=== PATIENT | female | born 1985 | race African-American/Black ===

== ENCOUNTER 2016-09-16 20:55 | Outpatient (CLI) | payer MEDICAID ==
[2016-09-16 21:46] LABS: APPEARANCE,URINE CLEAR; BILIRUBIN,URINE NEGATIVE (NEGATIVE); GLUCOSE, URINE NEGATIVE (NEGATIVE); KETONES,URINE NEGATIVE (NEGATIVE); LEUKOCYTE ESTERASE,URINE NEGATIVE (NEGATIVE); NITRITE,URINE NEGATIVE (NEGATIVE); PROTEIN,URINE NEGATIVE (NEGATIVE); URINE SPECIFIC GRAVITY 1.004; UROBILINOGEN,URINE NEGATIVE mg/dL (<2.0)
[2016-09-16 22:09] LABS: URINE BARBITURATES SCREEN NEGATIVE; URINE METHADONE SCREEN NEGATIVE; URINE OPIATES LOW NEGATIVE; URINE PHENCYCLIDINE SCREEN NEGATIVE
--- NOTE | 2016-09-16 22:58 | RADIOLOGY REPORT (SQ) ---
EXAM DESCRIPTION: U/S OB LIMITED COMPLETED DATE/TIME: 09/16/2016 10:42 pm REASON FOR STUDY: Cervical Length/ contractions COMPARISON: None. TECHNIQUE: Limited transabdominal grayscale ultrasound for evaluation of specific requested obstetri nicki parameters. LIMITATIONS: None. FINDINGS: CERVICAL LENGTH: 3.5 cm Closed. FHR: 150 beats per minute. PRESENTATION: Cephalic. OTHER: No other significant findings. IMPRESSION: LIMITED OBSTETRICAL ULTRASOUND WITH MEASURED PARAMETERS DELINEATED ABOVE. Trimester of : Second trimester - 13 weeks 1 day to 27 weeks 6 days. TECHNICAL DOCUMENTATION: JOB ID: [id number] [employer]- All Rights Reserved
== END 2016-09-16 23:12 | disposition home or self-care (01) ==
LOC: LC 20:55
PROVIDERS: ATTEND Student in an Organized Health Care Education/Training Program
DX: O47.1 False labor at or after 37 completed weeks of gestation (principal)
CPT/HCPCS: 76815; 80307; 81001

== ENCOUNTER 2016-10-09 17:41 | Outpatient (CLI) | payer MEDICAID ==
[2016-10-09 18:38] LABS: AMORPHOUS SEDIMENT,URINE TRACE /HPF; APPEARANCE,URINE SLIGHTLY-CLOUDY; BILIRUBIN,URINE NEGATIVE (NEGATIVE); GLUCOSE, URINE NEGATIVE (NEGATIVE); KETONES,URINE NEGATIVE (NEGATIVE); LEUKOCYTE ESTERASE,URINE TRACE (NEGATIVE); NITRITE,URINE NEGATIVE (NEGATIVE); PROTEIN,URINE NEGATIVE (NEGATIVE); URINE SPECIFIC GRAVITY 1.006; UROBILINOGEN,URINE NEGATIVE mg/dL (<2.0)
[2016-10-09 18:56] LABS: URINE BARBITURATES SCREEN NEGATIVE; URINE METHADONE SCREEN NEGATIVE; URINE OPIATES LOW NEGATIVE; URINE PHENCYCLIDINE SCREEN NEGATIVE
--- NOTE | 2016-10-09 19:03 | RADIOLOGY REPORT (SQ) ---
EXAM DESCRIPTION: U/S OB LIMITED COMPLETED DATE/TIME: 10/09/2016 6:55 pm REASON FOR STUDY: cervical length COMPARISON: None. TECHNIQUE: Limited transvaginal and transabdominal grayscale ultrasound for evaluation of specific r equested obstetrical parameters. LIMITATIONS: None. FINDINGS: CERVICAL LENGTH: 4.3 cm Closed. CHAD: 13.3 cm. FHR: 141 beats per minute. PRESENTATION: Cephalic. OTHER: No other significant findings. IMPRESSION: LIMITED OBSTETRICAL ULTRASOUND WITH MEASURED PARAMETERS DELINEATED ABOVE. Trimester of : Third trimester - 28 weeks to delivery. TECHNICAL DOCUMENTATION: JOB ID: [id number] [employer]- All Rights Reserved
== END 2016-10-09 19:46 | disposition home or self-care (01) ==
LOC: LC 17:41
PROVIDERS: ATTEND Obstetrics & Gynecology
PROC: 4A1HXCZ Monitoring of Products of Conception, Cardiac Rate, External Approach (ICD-10-PCS; principal; 2016-10-09)
DX: O26.893 Other specified pregnancy related conditions, third trimester (principal); M54.9 Dorsalgia, unspecified; Z3A.29 29 weeks gestation of pregnancy
CPT/HCPCS: 76815; 80307; 81001

== ENCOUNTER 2016-11-13 08:34 | Outpatient (CLI) | payer MEDICAID ==
[2016-11-13 09:30] LABS: APPEARANCE,URINE CLEAR; BILIRUBIN,URINE NEGATIVE (NEGATIVE); GLUCOSE, URINE NEGATIVE (NEGATIVE); KETONES,URINE NEGATIVE (NEGATIVE); LEUKOCYTE ESTERASE,URINE NEGATIVE (NEGATIVE); NITRITE,URINE NEGATIVE (NEGATIVE); PROTEIN,URINE NEGATIVE (NEGATIVE); URINE SPECIFIC GRAVITY 1.003; UROBILINOGEN,URINE NEGATIVE mg/dL (<2.0)
[2016-11-13 09:46] LABS: URINE CREATININE 34.1 mg/dL (16-327); URINE PROTEIN 16.8 mg/dL (<12)
[2016-11-13 10:00] LABS: ABSOLUTE BASOPHILS # (AUTO) 0.1 10^3/uL (0.0-0.2); ABSOLUTE EOSINOPHILS # (AUTO) 0.1 10^3/uL (0.0-0.6); ABSOLUTE MONOCYTES (AUTO) 0.6 10^3/uL (0.1-1.4); ABSOLUTE NEUT (AUTO) 9.2 10^3/uL (1.7-8.2); BASOPHILS % (AUTO) 0.4 % (0-2); EOSINOPHILS % (AUTO) 0.7 % (0-6); HEMATOCRIT 29.7 % (36.0-47.0); HGB HCT DIFFERENCE 0.3; LYMPHOCYTES % (AUTO) 16.5 % (13-45); MEAN CORPUSCULAR HEMOGLOBIN 29.1 pg (27.0-33.4); MEAN CORPUSCULAR HGB CONC 33.7 g/dL (32.0-36.0); MEAN CORPUSCULAR VOLUME 86 fl (80-97); MONOCYTES % (AUTO) 4.9 % (3-13); RED BLOOD COUNT 3.44 10^6/uL (3.72-5.28); RED CELL DISTRIBUTION WIDTH 12.7 % (11.5-14.0); SEGMENTED NEUTROPHILS % (AUTO) 77.5 % (42-78); WHITE BLOOD COUNT 11.8 10^3/uL (4.0-10.5)
[2016-11-13 10:24] LABS: ALANINE AMINOTRANSFERASE 27 U/L (9-52); ALBUMIN 3.7 g/dL (3.5-5.0); ALKALINE PHOSPHATASE 136 U/L (38-126); ANION GAP 9 (5-19); ASPARTATE AMINO TRANSFERASE 20 U/L (14-36); BILIRUBIN,DIRECT 0.3 mg/dL (0.0-0.4); BILIRUBIN,TOTAL 0.4 mg/dL (0.2-1.3); BLOOD UREA NITROGEN 3 mg/dL (7-20); CALCIUM 9.7 mg/dL (8.4-10.2); CARBON DIOXIDE 23 mmol/L (22-30); CHLORIDE 106 mmol/L (98-107); CREATININE RESULT 0.53 mg/dL (0.52-1.25); GLUCOSE 96 mg/dL (75-110); LDH 423 U/L (313-618); POTASSIUM 3.7 mmol/L (3.6-5.0); SODIUM 138.2 mmol/L (137-145); TOTAL PROTEIN 6.6 g/dL (6.3-8.2)
== END 2016-11-13 10:48 | disposition home or self-care (01) ==
LOC: LC 08:34
PROVIDERS: ATTEND Obstetrics & Gynecology
PROC: 4A1HXCZ Monitoring of Products of Conception, Cardiac Rate, External Approach (ICD-10-PCS; principal; 2016-11-13)
DX: O13.3 Gestational [pregnancy-induced] hypertension without significant proteinuria, third trimester (principal); Z3A.35 35 weeks gestation of pregnancy
CPT/HCPCS: 36415; 59025; 80053; 81001; 82570; 83615; 84156; 84550; 85025

== ENCOUNTER 2016-11-23 15:15 | Outpatient (CLI) | payer MEDICAID ==
--- NOTE | 2016-11-23 16:21 | Non Stress Test Report ---
Non Stress Test Datetime Report Generated by CPN: 11/23/2016 16:20 DEMOGRAPHIC EGA NST: 36.3 EGA NST: 35.0 INDICATION Indication for Study: Ordered by Provider Indication for Study: Ordered by Provider Indication for Study (NST) Other: LC-Pre-E work up MONITORING Monitor Explained: Monitor Explained; Test Explained; Patient Verbalized Understanding Monitor Explained: Monitor Explained; Test Explained; Patient Verbalized Understanding Time on Monitor: 11/23/2016 15:29 Time on Monitor: 11/13/2016 08:57 Time off Monitor: 11/23/2016 16:15 NST Duration: 46 NST INTERVENTIONS NST Interventions: PO Hydration; Reposition Patient NST Interventions: PO Hydration; Meal Given; Reposition Patient Physician Notified NST: Dr. Gomes Physician Notified NST: Dr. Gomes BABY A: [id number] BABY A Movement : Present Movement : Present Contraction Frequency : 0 Contraction Frequency : Irr FHR Baseline : 135 Accelerations : 15X15 Accelerations : 15X15 Decelerations : None Decelerations : None Variability : Moderate 6-25bpm Variability : Moderate 6-25bpm NST Review: Meets Criteria for Reactive NST NST Review and Verified By : Tylor Palomares RN NST Results: Reactive NST Results: Reactive NST REPORT Report Trigger: Send Report
== END 2016-11-23 16:20 | disposition home or self-care (01) ==
LOC: LC 15:15
PROVIDERS: ATTEND Obstetrics & Gynecology
PROC: 4A1HXCZ Monitoring of Products of Conception, Cardiac Rate, External Approach (ICD-10-PCS; principal; 2016-11-23)
DX: Z34.93 Encounter for supervision of normal pregnancy, unspecified, third trimester (principal)
CPT/HCPCS: 59025

== ENCOUNTER 2016-12-03 06:42 | Inpatient (IN) | payer MEDICAID ==
[2016-11-30 13:31] LABS: APPEARANCE,URINE CLEAR; BILIRUBIN,URINE NEGATIVE (NEGATIVE); GLUCOSE, URINE NEGATIVE (NEGATIVE); KETONES,URINE 20 mg/dL (NEGATIVE); LEUKOCYTE ESTERASE,URINE NEGATIVE (NEGATIVE); NITRITE,URINE NEGATIVE (NEGATIVE); PROTEIN,URINE NEGATIVE (NEGATIVE); URINE SPECIFIC GRAVITY 1.014
[2016-11-30 13:43] LABS: ABSOLUTE LYMPHOCYTES (AUTO) 2.1 10^3/uL (0.5-4.7); ABSOLUTE MONOCYTES (AUTO) 0.6 10^3/uL (0.1-1.4); ABSOLUTE NEUT (AUTO) 7.4 10^3/uL (1.7-8.2); BASOPHILS % (AUTO) 0.4 % (0-2); EOSINOPHILS % (AUTO) 0.4 % (0-6); HEMATOCRIT 31.6 % (36.0-47.0); HEMOGLOBIN 10.6 g/dL (12.0-15.5); HGB HCT DIFFERENCE 0.2; LYMPHOCYTES % (AUTO) 20.4 % (13-45); MEAN CORPUSCULAR HEMOGLOBIN 29.1 pg (27.0-33.4); MEAN CORPUSCULAR HGB CONC 33.5 g/dL (32.0-36.0); MEAN CORPUSCULAR VOLUME 87 fl (80-97); MONOCYTES % (AUTO) 6.3 % (3-13); RED BLOOD COUNT 3.64 10^6/uL (3.72-5.28); RED CELL DISTRIBUTION WIDTH 12.7 % (11.5-14.0); SEGMENTED NEUTROPHILS % (AUTO) 72.5 % (42-78); WHITE BLOOD COUNT 10.2 10^3/uL (4.0-10.5)
[2016-11-30 13:49] LABS: URINE BARBITURATES SCREEN NEGATIVE; URINE METHADONE SCREEN NEGATIVE; URINE OPIATES LOW NEGATIVE; URINE PHENCYCLIDINE SCREEN NEGATIVE
[~2016-12-03 06:42] MED LIST: CEFAZOLIN 2 GM/D5W RTU 2 GM/50 ML RTUPB IV PRN; LIDOCAINE 0.5% INJ-PF (5 MG/ML) 50 ML SDV INJ PRN; RINGERS SOLUTION,LACTATED 1,000 ML IV PRN
[2016-12-03] MEDS ORDERED: OXYTOCIN/NORMAL SALINE 20 UNIT/1,000 ML RTUINJ ONE ×2 (09:58→12:13)
[2016-12-03] MEDS ORDERED: KETAMINE HCL INJ 500 MG/10 ML VIAL ONE (09:59)
[2016-12-03] MEDS ORDERED: PROPOFOL INJ 200 MG/20 ML VIAL IV ONE (09:59)
[2016-12-03] MEDS ORDERED: EPHEDRINE SULFATE INJ 50 MG/1 ML AMPULE ONE (09:59)
[2016-12-03] MEDS ORDERED: OXYTOCIN 10 UNIT/ML VIAL ONE (09:59)
[2016-12-03] MEDS ORDERED: FENTANYL CITRATE INJ/PF 100 MCG/2 ML AMPUL ONE ×2 (10:00→12:47)
[2016-12-03] MEDS ORDERED: MIDAZOLAM 2 MG/2 ML INJ ONE (10:00)
[2016-12-03] MEDS ORDERED: ONDANSETRON HCL INJ/PF 4 MG/2 ML SDV ONE (10:02)
[2016-12-03] MEDS ORDERED: ACETAMINOPHEN 100 ML IV ONE (10:05)
[2016-12-03] MEDS ORDERED: MORPHINE SULFATE 10 MG/ML INJ ONE (10:43)
[2016-12-03] MEDS ORDERED: FENTANYL CITRATE INJ/PF 100 MCG/2 ML AMPUL IV PRN ×3 (11:13)
[2016-12-03] MEDS ORDERED: MORPHINE SULFATE 10 MG/ML INJ IV PRN (11:13)
[2016-12-03] MEDS ORDERED: OXYTOCIN/NORMAL SALINE 20 UNIT/1,000 ML RTUINJ IV PRN (12:03)
[2016-12-03] MEDS ORDERED: ACETAMINOPHEN 325 MG TABLET PO PRN (12:03)
[2016-12-03] MEDS ORDERED: SIMETHICONE 80 MG TAB.CHEW PO PRN (12:03)
[2016-12-03] MEDS ORDERED: HYDROMORPHONE HCL INJ/PF 2 MG/ML AMPULE IV PRN (12:03)
[2016-12-03] MEDS ORDERED: ACETAMINOPHEN 100 ML IV PRN (12:03)
[2016-12-03] MEDS ORDERED: PROMETHAZINE HCL INJ 25 MG/1 ML VIAL IV PRN (12:03)
[2016-12-03] MEDS ORDERED: MEASLES,MUMPS&RUBELLA VACC/PF 0.5 ML VIAL SUBCUT PRN ×2 (12:03→14:30)
[2016-12-03] MEDS ORDERED: DIPH/PERTUSS(ACELL)/TETANUS VAC/PF 0.5 ML SYR (>=10YO) IM PRN ×2 (12:03→14:30)
[2016-12-03] MEDS ORDERED: OXYCODONE-ACETAMINOPHEN 5-325 MG TABLET PO PRN (12:03)
--- NOTE | 2016-12-03 12:18 | Brief Operative Note ---
BRIEF OPERATIVE REPORT DATE OF SURGERY: 12/03/16 TIME OF SURGERY: 11:00 PREOPERATIVE DIAGNOSIS: History of Section x 1, Desires RELTCS, Declines TOLAC, Undesired Fertility, , Anemia, GHTN, Left Ovarian Cyst POSTOPERATIVE DIAGNOSIS: ZHANNA - delivered SURGEON: MAKSIM CUELLAR FINDINGS: VFI delivered at 1100, Apgars 8/9, Weight 3165g, vertex presentation, FIlschie clips placed bilaterally, placenta with possible calcifications, left ovarian cyst (posible fibroma) partially avulsed from left ovary - removed and good hemostasis. IVF 2800ml, 600ml EBL, 125ml UOP COMPLICATIONS: None ESTIMATED BLOOD LOSS: 600ml TISSUE REMOVED OR ALTERED: placenta and cord - sent to pathology TECHNICAL PROCEDURE: RELTCS with BTL, Left Ovarian Cystectomy
--- NOTE | 2016-12-03 12:20 | Operative Report ---
Operative Report DATE OF SURGERY: 12/03/16 PREOPERATIVE DIAGNOSIS: History of Section x 1, Desires RELTCS, Declines TOLAC, Undesired Fertility, , Anemia, GHTN, Left Ovarian Cyst POSTOPERATIVE DIAGNOSIS: ZHANNA - delivered OPERATION: RELTCS with BTL, Left Ovarian Cystectomy SURGEON: MAKSIM CUELLAR ANESTHESIA: Spinal TISSUE REMOVED OR ALTERED: placenta and cord - sent to pathology COMPLICATIONS: None ESTIMATED BLOOD LOSS: 600ml INTRAOPERATIVE FINDINGS: VFI delivered at 1100, Apgars 8/9, Weight 3165g, vertex presentation, FIlschie clips placed bilaterally, placenta with possible calcifications, left ovarian cyst (posible fibroma) partially avulsed from left ovary - removed and good hemostasis. IVF 2800ml, 600ml EBL, 125ml UOP PROCEDURE: RELTCS and BTL with Left ovarian cystectomy
--- NOTE | 2016-12-03 12:23 | PDOC DELIVERY SUMMARY ---
Delivery Summary - Maternal Hx : V Hx Para: II Hx # Pregnancies: 2 Hx Total # of Abortions (Sponateous & Elective): 2 ALBERT: 12/22/16 Gestational Age: 37 wk +2 Risk Factors: Previous , Induced HTN Ruptured Membranes: AROM Time of Rupture: 10:58 Fluids: Clear - Delivery Labor: Not In Labor Presentation: Vertex Heart Rate Monitoring: Done Pre-Operatively Uterine Contraction Monitoring: External Support Person Present: Yes Location: OR : Scheduled, Repeat Placenta: Within Normal Limits Nuchal Cord: No Delivery of Placenta Date: 12/03/16 Delivery of Placenta Time: 11:03 - Medications Type of Anesthesia:: Spinal - Assess and Care Baby 1 Female Delivery of Infant Date: 12/03/16 Delivery of Time: 11:00 at 1 minute: 8 at 5 minutes: 9 Preprinted Number On Band: [id number] Infant Skin to Skin: No To Nursery At: 11:09 Mode of Transport: Bassinet Delivery Weight: 3165 kg Infant Delivery Length: 19 in - Delivery Personnel [employer] Specialist: DR LISSY Nagy RN: MAGUE RN: AJAY SIERRA MD: MAKSIM CUELLAR
[2016-12-03] MEDS ORDERED: KETOROLAC TROMETHAMINE INJ/PF 30 MG/1 ML SDV ONE (12:41)
[2016-12-03] MEDS ORDERED: FENTANYL CITRATE INJ/PF 100 MCG/2 ML AMPUL INJ ONE ×2 (13:24→13:50)
[2016-12-03] MEDS ORDERED: KETOROLAC TROMETHAMINE INJ/PF 30 MG/1 ML SDV IV SCH ×2 (14:00→18:00)
[2016-12-03] MEDS ORDERED: KETOROLAC TROMETHAMINE INJ/PF 30 MG/1 ML SDV IV ONE (16:45)
[2016-12-03] MEDS: DOCUSATE SODIUM 100 MG CAPSULE PO SCH (18:28)
[2016-12-03] MEDS: KETOROLAC TROMETHAMINE INJ/PF 30 MG/1 ML SDV IV SCH (21:16)
[2016-12-04] MEDS: OXYCODONE-ACETAMINOPHEN 5-325 MG TABLET PO PRN ×4 (00:23→23:39)
[2016-12-04] MEDS: KETOROLAC TROMETHAMINE INJ/PF 30 MG/1 ML SDV IV SCH (05:13)
[2016-12-04 06:21] LABS: HEMATOCRIT 24.9 % (36.0-47.0); HEMOGLOBIN 8.5 g/dL (12.0-15.5); HGB HCT DIFFERENCE 0.6; MEAN CORPUSCULAR HEMOGLOBIN 28.8 pg (27.0-33.4); MEAN CORPUSCULAR HGB CONC 34.3 g/dL (32.0-36.0); MEAN CORPUSCULAR VOLUME 84 fl (80-97); RED BLOOD COUNT 2.96 10^6/uL (3.72-5.28); RED CELL DISTRIBUTION WIDTH 12.6 % (11.5-14.0); WHITE BLOOD COUNT 12.5 10^3/uL (4.0-10.5)
--- NOTE | 2016-12-04 09:53 | PDOC PROGRESS REPORT ---
Subjective-OB Subjective: Post Delivery Day: 31 year old. Denies any needs at this time Doing well, no c/o, pain under control, breast feeding, passing gas, eating well , ambulating Physical Exam (OB) Vital Signs: Temp Pulse Resp BP Pulse Ox 98.3 F 67 14 156/90 H 98 12/04/16 08:02 12/04/16 08:02 12/04/16 08:02 12/04/16 08:02 12/04/16 08:02 Intake & Output 12/03/16 12/04/16 12/05/16 06:59 06:59 06:59 Intake Total 1000 99208 Output Total 2915 Balance 1000 9685 Weight 66.678 kg - PIH/Pre-Eclampsia Headache: Absent - Dressing Removed: No Incision: Open, Well Approximated Closure Type: Surgical Glue - Lochia Lochia Amount: Small 10-25 ml Lochia Color: Rubra/Red - Abdomen Description: Soft, Round Hernia Present: No Fundal Description: Firm, Midline Fundal Height: u/u - u/2 Objective-Diagnostic Laboratory: 12/04/16 05:56 12/04/16 05:56 WBC 12.5 H RBC 2.96 L Hgb 8.5 L Hct 24.9 L MCV 84 MCH 28.8 MCHC 34.3 RDW 12.6 Plt Count 174 Assessment and Plan(PN) - Assessment and Plan (1) Anemia due to acute blood loss Is this a current diagnosis for this admission?: Yes (2) Tubal ligation status Is this a current diagnosis for this admission?: Yes (3) Status post repeat low transverse section Is this a current diagnosis for this admission?: Yes - Time Spent with Patient Time with patient: Less than 15 minutes Smoking Education Provided: Over 3 minutes - Disposition Anticipated Discharge: Home Within: within 24 hours
[2016-12-04] MEDS: DOCUSATE SODIUM 100 MG CAPSULE PO SCH ×2 (09:54→18:27)
[2016-12-04] MEDS: PRENATAL VITAMIN W-O CA NO5/FE FUMARATE/FA CAPSULE PO SCH (09:54)
[2016-12-04] MEDS: IBUPROFEN 800 MG TABLET PO SCH ×3 (11:59→23:39)
[2016-12-04] MEDS ORDERED: IBUPROFEN 800 MG TABLET PO SCH ×2 (18:00→20:00)
[2016-12-04] MEDS ORDERED: IBUPROFEN 800 MG TABLET ONE (18:30)
[2016-12-05] MEDS ORDERED: LABETALOL HCL 200 MG TABLET PO ONE (05:00)
[2016-12-05] MEDS: IBUPROFEN 800 MG TABLET PO SCH (05:05)
[2016-12-05] MEDS: OXYCODONE-ACETAMINOPHEN 5-325 MG TABLET PO PRN (05:06)
[2016-12-05 09:40] VITALS: BP 144/82
[2016-12-05] MEDS ORDERED: LABETALOL HCL 200 MG TABLET PO SCH (10:00)
[2016-12-05] MEDS: DOCUSATE SODIUM 100 MG CAPSULE PO SCH (10:31)
[2016-12-05] MEDS: PRENATAL VITAMIN W-O CA NO5/FE FUMARATE/FA CAPSULE PO SCH (10:31)
--- NOTE | 2016-12-05 10:40 | PDOC DISCHARGE SUMMARY ---
Final Diagnosis Discharge Date: 12/05/16 - Final Diagnosis (1) Anemia due to acute blood loss Is this a current diagnosis for this admission?: Yes (2) Status post repeat low transverse section Is this a current diagnosis for this admission?: Yes (3) Tubal ligation status Is this a current diagnosis for this admission?: Yes Discharge Data - Discharge Medication Home Medications: Vit 10/Iron/Folic/Dha [Vitafol-Ob+Dha Combo Pack] 1 each PO DAILY 09/16 Docusate Sodium [Colace 100 mg Capsule] 100 mg PO BID #60 capsule 12/05/16 Ferrous Sulfate 325 mg PO BID #60 tablet 12/05/16 Ibuprofen [Motrin 800 mg Tablet] 800 mg PO Q6 #60 tablet 12/05/16 Labetalol HCl [Normodyne 200 mg Tablet] 200 mg PO Q12 #60 tablet 12/05/16 Oxycodone HCl/Acetaminophen [Percocet 5-325 mg Tablet] 2 tab PO Q4HP PRN #30 tablet 12/05/16 Gestational Age: 37.2 Reason(s) for Admission: Ceasarean Section-Repeat, Tubal Ligation, Group B Strep Positive Procedures: NST Intrapartum Procedure(s): : Low Cervical, Transverse, Tubal Ligation - Pearce Data Baby 1 Female at 1 minute: 8 at 5 minutes: 9 Weight: 3165 kg Home with Mother: Yes Complications: No - Diagnosis Test Laboratory: Temp Pulse Resp BP Pulse Ox 98.3 F 85 16 144/82 H 99 12/05/16 08:23 12/05/16 08:23 12/05/16 08:23 12/05/16 08:23 12/05/16 08:23 11/30/16 11/30/16 12/04/16 12:40 12:44 05:56 RBC 3.64 L 2.96 L Hgb 10.6 L 8.5 L Hct 31.6 L 24.9 L Urine Opiates Screen NEGATIVE - Discharge information/Instructions Discharge Activity: Activity As Tolerated, No Lifting Over 10 Pounds, Pelvic Rest, No tub bath Discharge Diet: Regular Disposition: HOME, SELF-CARE Follow up with: [facility] in: 1, Weeks
== END 2016-12-05 11:55 | disposition home or self-care (01) | DRG 766 ==
LOC: 2S 06:42 → 2N 08:21
PROVIDERS: ADMIT Student in an Organized Health Care Education/Training Program; ATTEND Student in an Organized Health Care Education/Training Program
PROC: 0UL70CZ Occlusion of Bilateral Fallopian Tubes with Extraluminal Device, Open Approach (ICD-10-PCS; 2016-12-03)
PROC: 0UB10ZZ Excision of Left Ovary, Open Approach (ICD-10-PCS; 2016-12-03)
PROC: 10D00Z1 Extraction of Products of Conception, Low, Open Approach (ICD-10-PCS; principal; 2016-12-03 10:00)
DX: O34.211 Maternal care for low transverse scar from previous cesarean delivery (principal); O13.4 Gestational [pregnancy-induced] hypertension without significant proteinuria, complicating childbirth; O99.02 Anemia complicating childbirth; O34.83 Maternal care for other abnormalities of pelvic organs, third trimester; F17.211 Nicotine dependence, cigarettes, in remission; O99.334 Smoking (tobacco) complicating childbirth; O99.824 Streptococcus B carrier state complicating childbirth; N85.8 Other specified noninflammatory disorders of uterus; N83.292 Other ovarian cyst, left side; Z3A.37 37 weeks gestation of pregnancy; Z37.0 Single live birth; Z30.2 Encounter for sterilization
CPT/HCPCS: 1961; 36415; 59025; 80307; 81001; 85025; 85027; 86850; 86900; 86901; 88305; 88307; 94799; C1765; J0131; J1170; J1885; J2250; J2270; J2405; J2590; J2704; J3010; J3490; J7120

== ENCOUNTER 2017-01-10 16:18 | Emergency (ER) | payer MEDICAID ==
--- NOTE | 2017-01-10 16:44 | ER Document Report ---
ED Medical Screen (RME) - General Chief Complaint: High Blood Pressure Stated Complaint: BLOOD PRESSURE ISSUES,HEADACHE Time Seen by Provider: 01/10/17 16:34 Mode of Arrival: Ambulatory Information source: Patient TRAVEL OUTSIDE OF THE [place] IN LAST 30 DAYS: No - HPI Onset: This morning - AWOKE W/ HEADACHE Quality of pain: Achy, Dull Associated Symptoms: denies: Chest pain, Leg swelling, Shortness of breath Exacerbated by: Denies Relieved by: Denies Similar symptoms previously: Yes - W/ EXCESSIVE HYPERTENSION Recently seen / treated by doctor: Yes - YESTERDAY, CHANGED FROM METOPROLOL TO ADALAT - Related Data Smoking: Non-smoker Frequency of alcohol use: None Drug Abuse: None Allergies/Adverse Reactions: No Known Allergies Allergy (Verified 01/10/17 16:22) Past Medical History - General Information source: Patient - Social History Cigarette use (# per day): No Chew tobacco use (# tins/day): No Frequency of alcohol use: None Drug Abuse: None Lives with: Family Family history: None - Past Medical History Cardiac Medical History: Reports: Hx Hypertension, Other - PRE-ECLAMPSIA WITH 1st & 3rd PREGNANCIES Pulmonary Medical History: Reports: None Neurological Medical History: Denies: Hx Cerebrovascular Accident, Hx Seizures Endocrine Medical History: Denies: Hx Hyperthyroidism, Hx Hypothyroidism Renal/ Medical History: Denies: Hx Kidney Stones Musculoskeltal Medical History: Denies Hx Fibromyalgia Psychiatric Medical History: Denies: Hx Bipolar Disorder, Hx Depression, Hx Post Traumatic Stress Disorder , Hx Schizophrenia Traumatic Medical History: Denies: Hx Fractures Infectious Medical History: Denies: Hx HIV Past Surgical History: Reports: Hx Section - Immunizations Hx Diphtheria, Pertussis, Tetanus Vaccination: Yes Review of Systems - Review of Systems Constitutional: No symptoms reported EENT: No symptoms reported Cardiovascular: No symptoms reported. denies: Chest pain, Palpitations Respiratory: No symptoms reported. denies: Short of breath Physical Exam - Vital signs Vitals: Temp Pulse Resp BP Pulse Ox 98.3 F 92 20 174/110 H 100 01/10/17 16:26 01/10/17 16:26 01/10/17 16:26 01/10/17 16:26 01/10/17 16:26 Interpretation: Hypertensive. No: Tachycardic, Tachypneic - General General appearance: Appears well, Alert In distress: None - Extremities General upper extremity: Normal inspection General lower extremity: Normal inspection. No: Edema Course - Vital Signs Vital signs: Temp Pulse Resp BP Pulse Ox 98.3 F 92 20 174/110 H 100 01/10/17 16:26 01/10/17 16:26 01/10/17 16:26 01/10/17 16:26 01/10/17 16:26
[2017-01-10 17:21] LABS: ABSOLUTE BASOPHILS # (AUTO) 0.1 10^3/uL (0.0-0.2); ABSOLUTE EOSINOPHILS # (AUTO) 0.2 10^3/uL (0.0-0.6); ABSOLUTE LYMPHOCYTES (AUTO) 2.4 10^3/uL (0.5-4.7); ABSOLUTE MONOCYTES (AUTO) 0.4 10^3/uL (0.1-1.4); BASOPHILS % (AUTO) 1.2 % (0-2); EOSINOPHILS % (AUTO) 4.8 % (0-6); HEMOGLOBIN 11.9 g/dL (12.0-15.5); HGB HCT DIFFERENCE -0.3; LYMPHOCYTES % (AUTO) 46.7 % (13-45); MEAN CORPUSCULAR HEMOGLOBIN 26.5 pg (27.0-33.4); MEAN CORPUSCULAR VOLUME 80 fl (80-97); MONOCYTES % (AUTO) 8.5 % (3-13); RED BLOOD COUNT 4.49 10^6/uL (3.72-5.28); RED CELL DISTRIBUTION WIDTH 14.8 % (11.5-14.0); SEGMENTED NEUTROPHILS % (AUTO) 38.8 % (42-78); WHITE BLOOD COUNT 5.1 10^3/uL (4.0-10.5)
--- NOTE | 2017-01-10 17:32 | RADIOLOGY REPORT (SQ) ---
EXAM DESCRIPTION: CHEST SINGLE VIEW COMPLETED DATE/TIME: 01/10/2017 5:23 pm REASON FOR STUDY: HYPERTENSIVE URGENCY COMPARISON: 08/21/2008 EXAM PARAMETERS: NUMBER OF VIEWS: One view. TECHNIQUE: Single frontal radiographic view of the chest acquired. RADIATION DOSE: NA LIMITATIONS: None. FINDINGS: LUNGS AND PLEURA: No opacities, masses or pneumothorax. No pleural effusion. MEDIASTINUM AND HILAR STRUCTURES: No masses. Contour normal. HEART AND VASCULAR STRUCTURES: Heart normal in size. Normal vasculature. BONES: No acute findings. HARDWARE: None in the chest. OTHER: No other significant finding. IMPRESSION: NO ACUTE RADIOGRAPHIC FINDING IN THE CHEST. TECHNICAL DOCUMENTATION: JOB ID: [id number] [employer]- All Rights Reserved
[2017-01-10 17:41] LABS: ALANINE AMINOTRANSFERASE 30 U/L (9-52); ALKALINE PHOSPHATASE 106 U/L (38-126); ANION GAP 13 (5-19); ASPARTATE AMINO TRANSFERASE 26 U/L (14-36); BILIRUBIN,DIRECT 0.4 mg/dL (0.0-0.4); BILIRUBIN,TOTAL 0.5 mg/dL (0.2-1.3); BLOOD UREA NITROGEN 9 mg/dL (7-20); CALCIUM 10.3 mg/dL (8.4-10.2); CARBON DIOXIDE 27 mmol/L (22-30); CHLORIDE 104 mmol/L (98-107); CREATINE KINASE 306 U/L (30-135); CREATININE RESULT 0.79 mg/dL (0.52-1.25); GLUCOSE 91 mg/dL (75-110); SODIUM 144.2 mmol/L (137-145); TOTAL PROTEIN 8.4 g/dL (6.3-8.2)
[2017-01-10 17:51] LABS: CREATINE KINASE MB 1.55 ng/mL (<4.55)
[2017-01-10 17:52] LABS: TROPONIN I < 0.012 ng/mL
[2017-01-10 17:55] LABS: APPEARANCE,URINE SLIGHTLY-CLOUDY; BILIRUBIN,URINE NEGATIVE (NEGATIVE); GLUCOSE, URINE NEGATIVE (NEGATIVE); KETONES,URINE NEGATIVE (NEGATIVE); LEUKOCYTE ESTERASE,URINE MODERATE (NEGATIVE); NITRITE,URINE NEGATIVE (NEGATIVE); PROTEIN,URINE 30 mg/dL (NEGATIVE); UROBILINOGEN,URINE NEGATIVE mg/dL (<2.0)
[2017-01-10] MEDS ORDERED: CLONIDINE HCL 0.1 MG TABLET PO ONE (17:57)
--- NOTE | 2017-01-10 18:38 | ER Document Report ---
ED General - General Chief Complaint: High Blood Pressure Stated Complaint: BLOOD PRESSURE ISSUES,HEADACHE Time Seen by Provider: 01/10/17 16:34 Mode of Arrival: Ambulatory Information source: Patient Notes: 31 yr old female with hx of htn related to who has been on labetolol 200mg bid presents with complaints of continued htn , headache this morning. pt TRAVEL OUTSIDE OF THE [place] IN LAST 30 DAYS: No - Related Data Allergies/Adverse Reactions: No Known Allergies Allergy (Verified 01/10/17 16:22) Past Medical History - General Information source: Patient - Social History Smoking Status: Current Every Day Smoker Cigarette use (# per day): No Chew tobacco use (# tins/day): No Frequency of alcohol use: None Drug Abuse: None Lives with: Family Family History: Hypertension Patient has suicidal ideation: No Patient has homicidal ideation: No - Past Medical History Cardiac Medical History: Reports: Hx Hypertension, Other - PRE-ECLAMPSIA WITH 1st & 3rd PREGNANCIES Pulmonary Medical History: Reports: None Neurological Medical History: Denies: Hx Cerebrovascular Accident, Hx Seizures Endocrine Medical History: Denies: Hx Hyperthyroidism, Hx Hypothyroidism Renal/ Medical History: Denies: Hx Kidney Stones, Hx Peritoneal Dialysis Musculoskeltal Medical History: Denies Hx Fibromyalgia Psychiatric Medical History: Denies: Hx Bipolar Disorder, Hx Depression, Hx Post Traumatic Stress Disorder , Hx Schizophrenia Traumatic Medical History: Denies: Hx Fractures Infectious Medical History: Denies: Hx HIV Past Surgical History: Reports: Hx Section - Immunizations Hx Diphtheria, Pertussis, Tetanus Vaccination: Yes Review of Systems - Review of Systems Notes: REVIEW OF SYSTEMS: CONSTITUTIONAL : Denies fever, chills, or sweats. Denies recent illness. EENT: Denies eye, ear, throat, or mouth pain or symptoms. Denies nasal or sinus congestion or discharge. Denies throat, tongue, or mouth swelling or difficulty swallowing. CARDIOVASCULAR: Denies chest pain. Denies palpitations or racing or irregular heart beat. Denies ankle edema. RESPIRATORY: Denies cough, cold, or chest congestion. Denies shortness of breath, difficulty breathing, or wheezing. GASTROINTESTINAL: Denies abdominal pain or distention. Denies nausea, vomiting , or diarrhea. Denies blood in vomitus, stools, or per rectum. Denies black, tarry stools. Denies constipation. GENITOURINARY: Denies difficulty urinating, painful urination, burning, frequency, blood in urine, or discharge. FEMALE GENITOURINARY: Denies vaginal bleeding, heavy or abnormal periods, irregular periods. Denies vaginal discharge or odor. MUSCULOSKELETAL: Denies back or neck pain or stiffness. Denies joint pain or swelling. SKIN: Denies rash, lesions or sores. HEMATOLOGIC : Denies easy bruising or bleeding. LYMPHATIC: Denies swollen, enlarged glands. NEUROLOGICAL: Admits to headache blurry vision PSYCHIATRIC: Denies anxiety or stress. Denies depression, suicidal ideation, or homicidal ideation. ALL OTHER SYSTEMS REVIEWED AND NEGATIVE. PHYSICAL EXAMINATION: GENERAL: Well-appearing, well-nourished and in no acute distress. HEAD: Atraumatic, normocephalic. EYES: Pupils equal round and reactive to light, extraocular movements intact, conjunctiva are normal. ENT: Nares patent, oropharynx clear without exudates. Moist mucous membranes. NECK: Normal range of motion, supple without lymphadenopathy LUNGS: Breath sounds clear to auscultation bilaterally and equal. No wheezes rales or rhonchi. HEART: Regular rate and rhythm without murmurs ABDOMEN: Soft, nontender, nondistended abdomen. No guarding, no rebound. No masses appreciated. Female : deferred Musculoskeletal: Normal range of motion, no pitting or edema. No cyanosis. NEUROLOGICAL: Cranial nerves grossly intact. Normal speech, normal gait. Normal sensory, motor exams PSYCH: Normal mood, normal affect. SKIN: Warm, Dry, normal turgor, no rashes or lesions noted. Dictation was performed using [employer] voice recognition software Physical Exam - Vital signs Vitals: Temp Pulse Resp BP Pulse Ox 98.3 F 92 20 174/110 H 100 01/10/17 16:26 01/10/17 16:26 01/10/17 16:26 01/10/17 16:26 01/10/17 16:26 Course - Re-evaluation Re-evalutation: 01/10/17 19:07 Patient's lab work noted no significant abnormality, patient was treated for her blood pressure with clonidine and that improved, I will discharge her home with clonidine after speaking with Dr. Gomes who wishes to continue her on current medications, patient is on nifedipine which I initially believe she was on labetalol which was switched yesterday, I believe this may be the cause of her worsening high blood pressure. After performing a Medical Screening Examination, I estimate there is LOW risk for ACUTE GLAUCOMA, TEMPORAL ARTERITIS, MENINGITIS, INCRANIAL HEMORRHAGE, or ISCHEMIC STROKE thus I consider the discharge disposition reasonable. I have reevaluated this patient multiple times and no significant life threatening changes are noted. The patient and I have discussed the diagnosis and risks, and we agree with discharging home with close follow-up with the understanding that symptoms and presentations can change. We also discussed returning to the Emergency Department immediately if new or worsening symptoms occur. We have discussed the symptoms which are most concerning (e.g., changing or worsening symptoms, new numbness or weakness, vomiting, fever) that necessitate immediate return. - Vital Signs Vital signs: Temp Pulse Resp BP Pulse Ox 98.3 F 92 15 158/106 H 100 01/10/17 16:26 01/10/17 16:26 01/10/17 18:52 01/10/17 18:52 01/10/17 18:52 - Laboratory Result Diagrams: 01/10/17 17:00 01/10/17 17:00 Laboratory results interpreted by me: 01/10/17 01/10/17 01/10/17 17:00 17:00 17:20 Hgb 11.9 L MCH 26.5 L RDW 14.8 H Seg Neutrophils % 38.8 L Lymphocytes % 46.7 H Calcium 10.3 H Creatine Kinase 306 H Total Protein 8.4 H Urine Protein 30 H Urine Blood SMALL H Ur Leukocyte Esterase MODERATE H - EKG Interpretation by Ok EKG shows normal: Sinus rhythm, [place], Intervals, QRS Complexes Discharge - Discharge Clinical Impression: HTN (hypertension) Qualifiers: Hypertension type: essential hypertension Qualified Code(s): I10 - Essential ( primary) hypertension Condition: Stable Disposition: HOME, SELF-CARE Instructions: High Blood Pressure, Requiring Treatment ([facility]) Additional Instructions: Follow up with your physician tomorrow for further care or return to the ED IMMEDIATELY if symptoms worsen or new concerns occur. If you cannot afford to follow up with your primary care physician a list of low cost clinics have been provided at the end of your discharge papers as well. Prescriptions: Clonidine HCl 0.1 mg PO Q8HP PRN #30 tablet PRN Reason:
--- NOTE | 2017-01-10 18:51 | EKG REPORT ---
SEVERITY:- ABNORMAL ECG - SINUS RHYTHM RIGHT ATRIAL ABNORMALITY INFERIOR Q WAVES, PROBABLY NORMAL VARIATION : Confirmed by: Kiko Starks MD 10-Jan-2017 18:50:21
[2017-01-10 19:10] VITALS: BP 153/105
== END 2017-01-10 19:10 | disposition home or self-care (01) ==
LOC: ER 16:18
DX: I10 Essential (primary) hypertension (principal); Z79.899 Other long term (current) drug therapy; F17.200 Nicotine dependence, unspecified, uncomplicated
CPT/HCPCS: 93005; 99284; 36415; 82553; 82550; 85025; 80053; 81001; 84484; 71010; 93010; J3490

== ENCOUNTER → 2018-12-15 | Outpatient (CLI) | payer OTHER ==
[2018-12-15 09:14] LABS: ABSOLUTE LYMPHOCYTES (AUTO) 1.8 10^3/uL (0.5-4.7); ABSOLUTE MONOCYTES (AUTO) 0.2 10^3/uL (0.1-1.4); ABSOLUTE NEUT (AUTO) 1.6 10^3/uL (1.7-8.2); BASOPHILS % (AUTO) 0.8 % (0-2); EOSINOPHILS % (AUTO) 0.6 % (0-6); HEMATOCRIT 34.2 % (36.0-47.0); HEMOGLOBIN 11.5 g/dL (12.0-15.5); LYMPHOCYTES % (AUTO) 49.5 % (13-45); MEAN CORPUSCULAR HEMOGLOBIN 26.5 pg (27.0-33.4); MEAN CORPUSCULAR HGB CONC 33.5 g/dL (32.0-36.0); MEAN CORPUSCULAR VOLUME 79 fl (80-97); PLATELET COUNT 282 10^3/uL (150-450); RED BLOOD COUNT 4.32 10^6/uL (3.72-5.28); RED CELL DISTRIBUTION WIDTH 16.4 % (11.5-14.0); SEGMENTED NEUTROPHILS % (AUTO) 44.1 % (42-78); TOTAL CELLS COUNTED % (AUTO) 100 %; WHITE BLOOD COUNT 3.7 10^3/uL (4.0-10.5)
[2018-12-15 09:20] LABS: APPEARANCE,URINE SLIGHTLY-CLOUDY; BILIRUBIN,URINE NEGATIVE (NEGATIVE); COLOR,URINE YELLOW; GLUCOSE, URINE NEGATIVE (NEGATIVE); KETONES,URINE NEGATIVE (NEGATIVE); LEUKOCYTE ESTERASE,URINE NEGATIVE (NEGATIVE); NITRITE,URINE NEGATIVE (NEGATIVE); PROTEIN,URINE 30 mg/dL (NEGATIVE); URINE SPECIFIC GRAVITY 1.019; UROBILINOGEN,URINE NEGATIVE mg/dL (<2.0)
[2018-12-15 09:31] LABS: ADD MANUAL MICROSCOPIC YES
[2018-12-15 09:32] LABS: RBC,URINE RARE /HPF; WBC,URINE NONE SEEN /HPF
[2018-12-15 09:39] LABS: ALBUMIN 4.9 g/dL (3.5-5.0); ALKALINE PHOSPHATASE 55 U/L (38-126); ANION GAP 7 (5-19); ASPARTATE AMINO TRANSFERASE 23 U/L (14-36); BILIRUBIN,DIRECT 0.1 mg/dL (0.0-0.4); BILIRUBIN,TOTAL 0.4 mg/dL (0.2-1.3); BLOOD UREA NITROGEN 10 mg/dL (7-20); CALCIUM 9.9 mg/dL (8.4-10.2); CARBON DIOXIDE 27 mmol/L (22-30); CHLORIDE 105 mmol/L (98-107); CHOLESTEROL 201.31 mg/dL (0-200); GLUCOSE 87 mg/dL (75-110); POTASSIUM 4.4 mmol/L (3.6-5.0); TOTAL PROTEIN 8.3 g/dL (6.3-8.2); TRIGLYCERIDES 51 mg/dL (<150)
[2018-12-15 09:53] LABS: DIRECT LDL 132 mg/dL (<100)
== END ==
LOC: OD 08:32
PROVIDERS: ATTEND Family Medicine
DX: I10 Essential (primary) hypertension (principal); Z13.220 Encounter for screening for lipoid disorders
CPT/HCPCS: 36415; 80053; 80061; 81001; 84443; 85025

== ENCOUNTER → 2019-03-16 | Outpatient (CLI) | payer OTHER | LOC: OD 09:55 | PROVIDERS: ATTEND Family Medicine | DX: Z11.1 Encounter for screening for respiratory tuberculosis (principal) | CPT/HCPCS: 36415; 86480 ==

== ENCOUNTER → 2019-07-14 | Outpatient (CLI) | payer OTHER | LOC: OD 11:48 | PROVIDERS: ATTEND Family Medicine | DX: R07.89 Other chest pain (principal) | CPT/HCPCS: 36415; 84484 ==

== ENCOUNTER → 2019-12-08 | Outpatient (CLI) | payer OTHER ==
--- NOTE | 2019-12-08 14:42 | RADIOLOGY REPORT (SQ) ---
EXAM DESCRIPTION: U/S NON-OB PELVIS TV W/O DOP IMAGES COMPLETED DATE/TIME: 12/08/2019 1:29 pm REASON FOR STUDY: PELVIC PAIN R10.2 PELVIC AND PERINEAL PAIN COMPARISON: None. TECHNIQUE: Dynamic and static grayscale images acquired of the pelvis via transvaginal approach and recorded on PACS. Additional selected color Doppler and spectral images recorded. LIMITATIONS: None. FINDINGS: UTERUS and ENDOMETRIAL STRIPE: Uterus is 9 x 5 x 4 cm in size. Along the anterior uterine body, a 3 x 3 cm ill-defined mass with internal color flow is present, obscuring the endometrial str ipe A short segment of endometrium is well seen along the lower uterine segment, measuring about 6 mm in thickness. Endometrial stripe is difficult to visualize along the uterine body and fundus. CERVIX: No nabothian cysts. Closed, 2 cm in length RIGHT OVARY AND DOPPLER: Normal size, 3.9 x 2.4 x 2.3 cm. No worrisome masses. Normal arterial vascul ar flow without evidence for torsion. LEFT OVARY AND DOPPLER: Normal size, 3.3 x 2.1 x 2.1 cm. No worrisome masses. Normal arterial vascula r flow without evidence for torsion. FREE FLUID: None noted. OTHER: No other significant finding. IMPRESSION: Normal size uterus with 3 cm heterogeneous mass along the anterior uterine body. This m ay represent a fibroid. Endometrial mass could not entirely be excluded. Consider follow-up pelvic MRI Normal size ovaries, no evidence for ovarian torsion. TECHNICAL DOCUMENTATION: JOB ID: [id number] [employer]- All Rights Reserved Rev Reading location - IP/workstation name: [email or web address]
== END ==
LOC: RAD 12:51
PROVIDERS: ATTEND Family Medicine
DX: R10.2 Pelvic and perineal pain (principal)
CPT/HCPCS: 76830